=== PATIENT | female | born 1985 | race Caucasian/White ===

== ENCOUNTER 2024-10-22 17:43 | Emergency (ER) | payer OTHER, SELFPAY ==
--- NOTE | 2024-10-22 17:47 | ED.WOUNDLAC ---
HPI - Wound/Laceration General Chief Complaint: Wound/Laceration Stated Complaint: sliced right hand pinky finger Time Seen by Provider: 10/22/24 17:47 Source: patient Mode of arrival: ambulatory Limitations: no limitations History of Present Illness HPI narrative: Sofía is a 39 year old female patient presenting to the clinic today with c/o laceration to her right 5th lateral distal finger. She reports she was washing dishes and cut her finger on a broken glass. Bleeding is controlled. Tetanus is unknown. Related Data Allergies Allergy/AdvReac Type Severity Reaction Status Date / Time No Known Allergies Allergy Verified 06/18/17 12:02 Review of Systems Review of Systems: Pertinent positives per HPI. Patient denies any fever, chills, rash, headache, visual changes, dizziness, cough, runny nose, sore throat, shortness of breath, chest pain, palpitations, nausea, vomiting, diarrhea, constipation, abdominal pain, or any urinary issues. PMFSH Comments At the time of my signature, I reviewed and agree with the nursing past medical, surgical, social, and family history. There is no relevant family history pertinent to the patient complaint. Exam Narrative: General: Well-developed, well nourished, in no apparent distress Head: Normocephalic, atraumatic. Cardio: Regular rate and rhythm, s1 and s2 normal, no murmur appreciated. Resp: Clear to auscultation bilaterally, no rhonchi, rales, wheezing or rubs. Integumentary: [place], warm, and dry, gapping 0.25 cm laceration to the right lateral 5th finger Course Course Emergency Course: Portions of this record may have been created with voice recognition software. Level of Care: Express Care Visit Vital Signs Vital signs: Vital Signs Temperature 37.0 C 10/22/24 17:57 Pulse Rate 103 H 10/22/24 17:57 Respiratory Rate 16 10/22/24 17:57 Blood Pressure 149/90 H 10/22/24 17:57 Pulse Oximetry 97 10/22/24 17:57 Oxygen Delivery Room Air 10/22/24 17:57 Temperature 37.0 C 10/22/24 17:57 Pulse Rate 103 H 10/22/24 17:57 Respiratory Rate 16 10/22/24 17:57 Blood Pressure 149/90 H 10/22/24 17:57 Pulse Oximetry 97 10/22/24 17:57 Oxygen Delivery Room Air 10/22/24 17:57 Vital signs reviewed Procedures Laceration Laceration 1: Date: 10/22/24 Site: hand (right 5th finger) Side (If applicable): right Size (cm): 0.25 Description: linear Depth: simple, single layer Local Anesthetic: lidocaine 1% Amount of anesthesia used (mL): 0.5 Pre-repair: wound explored and irrigated ====== Skin Level ====== Skin layer closed with: nylon Size (cm): 5-0 Number of sutures: 2 Technique: simple, interrupted ====== Subcutaneous Layer ====== ====== Muscle Layer ====== ====== Tendon Layer ====== Dressing: Verbal consent obtained for laceration repair. Risk and benefits explained and patient voiced understanding. Area was cleansed with antiseptic wound wash and a 27 gauge needle was then used to instill (0.5) ml of 1% lidocaine without epi into the wound edges. Area was prepped and draped using sterile technique. A 5-0 suture on a p needle was used to place (2) interrupted sutures bringing the wound edges together- well approximated. Patient tolerated procedure well. Sterile dressing applied. MDM - Wound/Laceration MDM Narrative Medical decision making narrative: At the time of visit patient is resting comfortably on the exam table. Patient appears to be nontoxic. C/o laceration to her right 5th lateral distal finger. She reports she was washing dishes and cut her finger on a broken glass. Bleeding is controlled. Tetanus is unknown. Laceration: 0.25 cm laceration to the right lateral 5th finger-laceration repair was performed-2 interrupted sutures were placed bringing the wound edges well approximate. Patient tolerated well Plan: Laceration to the right 5th finger-to interrupted sutures were placed bringing wound edges well approximate. Patient tolerated well. Recommend tetanus-patient fortunately was not given tetanus in the clinic today and contacted the patient to come back in to received tetanus. Patient will contact her primary care provider to see about getting a tetanus. Supportive measures were discussed with the patient and they voiced understanding discharge instructions and agrees to treatment plan. Return precautions reviewed Differential Diagnosis Differential diagnosis: Likely laceration, abscess, abrasion and avulsion of skin Discharge Plan Discharge Clinical Impression: Laceration of finger Qualifiers: Encounter type: initial encounter Finger: little finger Damage to nail status: without damage Foreign body presence: without foreign body Laterality: right Qualified Code(s): S61.216A - Laceration without foreign body of right little finger without damage to nail, initial encounter Patient Disposition: Home Condition: Stable Instructions: Antibiotic Form, Finger Laceration (ED) Additional Instructions: Leave bandage on for 24 hours then may remove and apply band aide covering as needed. Keep wound clean and dry Skin sutures out in 7 days. Watch for signs and symptoms of infection- redness, streaking, swelling, purulent discharge, or increase in pain. Follow up with your PCP for suture removal or return to the Express care. Patient Language: Mauritian Follow-up/Referrals: UNKNOWN,DOCTOR [Non-Staff] - Time of Disposition: 18:21 Quality NIHSS Nursing Documentation ED NIHSS nursing documentation: reviewed/agree
[2024-10-22 17:57] VITALS: BP 149/90; PULSE 103; RESP 16; TEMP 37; O2SAT 97
== END 2024-10-22 18:30 | disposition home or self-care (01) ==
PROVIDERS: Emergency Provider Nurse Practitioner Family
DX: S61.216A Laceration without foreign body of right little finger without damage to nail, initial encounter (principal); W25.XXXA Contact with sharp glass, initial encounter; Y93.G1 Activity, food preparation and clean up; E78.00 Pure hypercholesterolemia, unspecified
CPT/HCPCS: 12001; 99202; G0463